=== PATIENT | male | born 2000 | race Asian ===

== ENCOUNTER 2020-01-20 23:28 | Emergency (ER) | payer SELFPAY ==
[2020-01-20] MEDS ORDERED: NS 0.9% 1000 ML** 1,000 ML IV ONE ×2 (23:32→23:33)
[2020-01-20] MEDS ORDERED: Ondansetron INJ* 2 MG/ML VIAL IV ONE (23:33)
--- NOTE | 2020-01-20 23:54 | ED ---
Substance Abuse/Use - HPI Summary HPI Summary: Patient is a 19 year-old male arriving via ambulance to [facility] for alcohol intoxication tonight. Patient vomiting during transport and in ED room. Patient was drinking beer and vodka with friends. LEVEL 5 CAVEAT SECONDARY TO ALCOHOL INTOXICATION. History obtained from EMS. - History Of Current Complaint Stated Complaint: ETOH Time Seen by Provider: 01/20/20 23:32 Hx Obtained From: EMS Hx From Patient Unobtainable Due To: Other - Level 5 caveat, alcohol intoxication Associated Signs And Symptoms: Vomiting PMH/Surg Hx/FS Hx/Imm Hx - Surgical History Surgical History: Unable to Obtain/Confirm - Level 5 caveat, alcohol intoxication - Family History Family History: Level 5 caveat, seondary to intoxication - Social History Occupation: Student Alcohol Amount: Level 5 caveat, alcohol intoxication Smoking Status (MU): Unknown if Ever Smoked - Level 5 caveat, alcohol intoxication - Additional Comments History Additional Comments: past medical history unknown. LEVEL 5 CAVEAT SECONDARY TO ALCOHOL INTOXICATION. Review of Systems - ROS Summary Review of Systems Summary: Home Medications unknown. Positive: Other - alcohol intoxication Positive: Vomiting All Other Systems Reviewed And Are Negative: No - Comments Additional Review of Systems Comments: LEVEL 5 CAVEAT SECONDARY TO ALCOHOL INTOXICATION. Physical Exam - Summary Physical Exam Summary: General: Well-developed, Well-nourished male. Emesis in hair. No acute distress. HEENT: Normocephalic, Atraumatic. Eyes: Conjuctiva normal, PERRL. Oropharynx: Clear, mucous membranes moist, (-) exudates. Neck: Soft, FROM, (-) lymphadenopathy, (-) thyromegaly, (-) JVD. Cardiovascular: Normal sinus rhythm, (-) murmur. Lungs: Clear to auscultation bilaterally (-) wheezes, (-) rales, (-) rhonchi. Abdomen: Soft, non-tender, non-distended, (-) organomegaly, normal bowel sounds. Back: (-) CVA tenderness Extremities: No edema. Skin: Warm, dry, (-) rash. Neuro: Lethargic, asleep, unarousable Psychiatric: deferred Triage Information Reviewed: Yes Vital Signs Reviewed: Yes Completion Of Physical Exam Limited Due To: Level 5 - alcohol intoxication Procedures - Sedation Patient Received Moderate/Deep Sedation with Procedure: No Diagnostics - Laboratory Result Diagrams: 01/21/20 01:07 01/21/20 02:00 Lab Statement: Any lab studies that have been ordered have been reviewed, and results considered in the medical decision making process. Re-Evaluation - Re-Evaluation First Eval Re-Evaluation Time: 06:20 Change: Improved Comment: Patient is clinically sober. He is awake, alert, up to bathroom. He was concerned for urinary issues with pain, but he had been straight cathed. Safe for discharge. Course/Dx - Course Course Of Treatment: 19-year-old male presents by ambulance for acute alcohol intoxication and vomiting. No signs of trauma. Patient is obviously intoxicated upon arrival no signs of trauma. Blood alcohol 188. Patient given IV fluids and Zofran. He rested for many hours. Upon awakening patient has sensation to urinate but states it's too painful to try to appear. He is alert and oriented at this time with normal gait. He does have over 900 cc of blood in his urine. He is probably quite irritated from catheterization upon arrival. Lidocaine gel is used to straight catheter patient. And denies any fluids today. Follow-up with ECP. Follow-up sooner for any worsening symptoms. - Diagnoses Provider Diagnoses: Alcohol intoxication, Vomiting Discharge ED - Sign-Out/Discharge Documenting (check all that apply): Patient Departure - Patient will be discharged home. - Discharge Plan Condition: Stable Disposition: HOME Patient Education Materials: Alcohol Intoxication (ED) Referrals: [facility] [Provider Group] - 3 Days Additional Instructions: Please follow up with your primary care physician within three days. Please return to ED for any new or worsening symptoms. - Billing Disposition and Condition Condition: STABLE Disposition: Home - Attestation Statements Document Initiated by Derek: Yes Documenting Scribe: Griselda Hill Provider For Whom Derek is Documenting (Include Credential): Jaylyn Hammond MD Scribe Attestation: I, Griselda Hill, scribed for Jaylyn Hammond MD on 01/21/20 at 0643. Scribe Documentation Reviewed: Yes Provider Attestation: The documentation as recorded by the Griselda dietz accurately reflects the service I personally performed and the decisions made by me, Jaylyn Hammond MD Status of Scribe Document: Viewed
[2020-01-21 01:01] LABS: ALT 24 U/L (7-52); Albumin 4.5 g/dL (3.2-5.2); Albumin/Globulin Ratio 1.4 (1-3); Alkaline Phosphatase 67 U/L (34-104); Blood Urea Nitrogen 13 mg/dL (6-24); CO2 Carbon Dioxide 24 mmol/L (22-32); Calcium 9.2 mg/dL (8.6-10.3); Chloride 107 mmol/L (101-111); EGFR African American 126.6 (>60); EGFR Non-African American 104.7 (>60); Globulin 3.2 g/dL (2-4); Glucose 112 mg/dL (70-100); Sodium 139 mmol/L (135-145); Total Protein 7.7 g/dL (6.4-8.9)
[2020-01-21 01:07] LABS: Acetaminophen < 15 mcg/mL; Alcohol 188 mg/dL (<10); Salicylate < 2.50 mg/dL (<30)
[2020-01-21 01:16] LABS: ABS Basophils 0.1 10^3/ul (0-0.2); ABS Lymphocytes 1.2 10^3/ul (1.0-4.8); ABS Monocytes 0.4 10^3/ul (0-0.8); ABS Neutrophils 6.9 10^3/ul (1.5-7.7); Eosinophil % 0.5 %; Hematocrit 34 % (42-52); Hemoglobin 12.2 g/dL (14.0-18.0); Lymphocyte % 13.9 %; Mean Corpuscular HGB Conc 36 g/dL (31-36); Mean Corpuscular Hemoglobin 30 pg (27-31); Mean Corpuscular Volume 83 fL (80-94); Mean Platelet Volume 8.5 fL (7.4-10.4); Platelet Count 254 10^3/uL (150-450); Red Blood Count 4.12 10^6 /uL (4.18-5.48); Red Cell Distribution Width 13 % (10-15); White Blood Count 8.7 10^3/uL (3.5-10.8)
[2020-01-21 01:25] LABS: Anion Gap 8 mmol/L (2-11)
[2020-01-21] MEDS ORDERED: NS 0.9% 1000 ML** 1,000 ML IV ONE (02:49)
[2020-01-21 03:00] LABS: Urine Appearance Clear; Urine Bilirubin Negative (Negative); Urine Blood Negative (Negative); Urine Color Yellow; Urine Glucose Negative (Negative); Urine Ketones Negative (Negative); Urine Nitrite Negative (Negative); Urine Protein Negative (Negative); Urine Specific Gravity 1.012 (1.010-1.030); Urine Urobilinogen Negative (Negative)
[2020-01-21 03:18] LABS: Urine Benzodiazepine Screen None Detected (None Detect); Urine Opiates Screen None Detected (None Detect)
[2020-01-21 07:33] VITALS: BP 119/63
== END 2020-01-21 07:15 | disposition home or self-care (01) ==
LOC: EDBD → ED 23:28
DX: F10.129 Alcohol abuse with intoxication, unspecified (principal); Y90.6 Blood alcohol level of 120-199 mg/100 ml; R11.10 Vomiting, unspecified
CPT/HCPCS: 36415; 80053; 80307; 80320; 80329; 81003; 83605; 85025; 96361; 96374; 99284; G0480; J2405